=== PATIENT | male | born 1950 | race Caucasian/White ===

== ENCOUNTER 2018-02-11 04:21 | Emergency (ER) | payer MEDICARE, BC ==
[2018-02-11 04:59] VITALS: BP 122/89
[2018-02-11] MEDS ORDERED: HYDROmorphone 1 MG/ML Syringe IM ONE (05:32)
[2018-02-11] MEDS ORDERED: Ondansetron 4 MG Tab.DIS PO ONE (05:34)
[2018-02-11] MEDS ORDERED: Ketorolac 30 MG/ML SDV IM ONE (05:34)
--- NOTE | 2018-02-11 06:33 | EDM.PDOC ---
ED HPI GENERAL MEDICAL PROBLEM - General Chief Complaint: Neck Problem Stated Complaint: SORE NECK AND SHOULDER/ NO INJURY Time Seen by Provider: 02/11/18 05:27 Source of Information: Reports: Patient History Limitations: Reports: No Limitations - History of Present Illness INITIAL COMMENTS - FREE TEXT/NARRATIVE: This gentleman says that he was lifting a kayak to put it in the truck and then afterwards started having severe neck pain. It's gotten worse through the night. He describes it in the the left side of the neck posteriorly and radiating down to the left shoulder. He denies any weakness. Good been no trauma. neck Pain Score (Numeric/FACES): 8 - Related Data Allergies Allergy/AdvReac Type Severity Reaction Status Date / Time No Known Allergies Allergy Verified 02/11/18 04:50 Home Meds: Home Meds Acetaminophen/Caffeine [Excedrin Tension Headache] 2 tab PO DAILY 10/30/15 [ History] Irbesartan [Avapro] 150 mg PO DAILY 10/30/15 [History] Pantoprazole Sodium [Protonix] 40 mg PO DAILY 10/30/15 [History] Past Medical History HEENT History: Reports: Impaired Vision Cardiovascular History: Reports: Cardiomyopathy, Heart Failure, Hypertension, Other (See Below) Other Cardiovascular History: atrial flutter Respiratory History: Reports: SOB Gastrointestinal History: Reports: GERD Musculoskeletal History: Reports: Arthritis Neurological History: Reports: Headaches, Chronic Psychiatric History: Reports: Anxiety Endocrine/Metabolic History: Reports: Diabetes, Type II, Obesity/BMI 30+ - Infectious Disease History Infectious Disease History: Reports: Chicken Pox, Measles - Past Surgical History HEENT Surgical History: Reports: Oral Surgery Cardiovascular Surgical History: Reports: Cardiac Ablation, Other (See Below) Other Cardiovascular Surgeries/Procedures: cardiac regurgitation GI Surgical History: Reports: Colonoscopy Musculoskeletal Surgical History: Reports: Knee Replacement Social & Family History - Tobacco Use Smoking Status *Q: Never Smoker - Caffeine Use Caffeine Use: Reports: Coffee - Recreational Drug Use Recreational Drug Use: No - Living Situation & Occupation Living situation: Reports: , with Spouse Occupation: Retired ED ROS GENERAL - Review of Systems Review Of Systems: ROS reveals no pertinent complaints other than HPI. ED EXAM, UPPER BACK/NECK PAIN - Physical Exam Exam: See Below Exam Limited By: No Limitations General Appearance: Alert, WD/WN, Moderate Distress Neck Exam: Stiff Neck (Neck is stiff there some tenderness to the left left paraspinous muscles tenderness to the other associated muscles to the lateral side of the neck radiating down it the trapezius. Some tenderness in the supraspinatus area also.) Extremities: Normal Inspection Neurologic: No Motor/Sensory Deficits Course - Vital Signs Last Recorded V/S: Last Vital Signs Temp 36.4 C 02/11/18 04:59 Pulse 72 02/11/18 04:59 Resp 18 02/11/18 04:59 BP 122/89 02/11/18 04:59 Pulse Ox 95 02/11/18 04:59 - Orders/Labs/Meds Meds: Medications Discontinued Medications Generic Name Dose Route Start Last Admin Trade Name Rameshq PRN Reason Stop Dose Admin Hydromorphone HCl 2 mg 02/11/18 05:32 02/11/18 05:41 Dilaudid IM 02/11/18 05:33 2 mg ONETIME ONE Administration Ketorolac Tromethamine 30 mg 02/11/18 05:34 02/11/18 05:40 Toradol IM 02/11/18 05:35 30 mg ONETIME ONE Administration Ondansetron HCl 4 mg 02/11/18 05:34 02/11/18 05:40 Zofran Odt PO 02/11/18 05:35 4 mg ONETIME ONE Administration - Re-Assessments/Exams Free Text/Narrative Re-Assessment/Exam: 02/11/18 06:45 Patient received an injection of the Dilaudid 2 mg, Toradol 60 mg and Zofran 4 mg sublingual. Had good pain relief. Departure - Departure Time of Disposition: 06:30 Disposition: Home, Self-Care 01 Condition: Fair Clinical Impression: Neck muscle spasm - Discharge Information Instructions: Muscle Cramps and Spasms, [id number] Referrals: PCP,None [Primary Care Provider] - Forms: ED Department Discharge Additional Instructions: For pain use Percocet 5/325 one or 2 every 4 hours as needed for pain #20 dispensed. To relax muscles take Flexeril 10 mg 3 times daily. Both medications can cause sedation and impaired driving. Additionally you can take ibuprofen up to 800 mg 3 times per day. Heat may help. Generally muscle spasms like this are caused by some nerve compression in your neck and generally this will go away in a few days. Some people wind up seeing a chiropractor for relief.
== END 2018-02-11 06:45 | disposition home or self-care (01) ==
LOC: JP.ED 04:21
DX: M62.838 Other muscle spasm (principal); M54.2 Cervicalgia; I11.0 Hypertensive heart disease with heart failure; I50.9 Heart failure, unspecified; F41.9 Anxiety disorder, unspecified; M19.90 Unspecified osteoarthritis, unspecified site; E11.9 Type 2 diabetes mellitus without complications; Z79.899 Other long term (current) drug therapy
CPT/HCPCS: 96372; 99283; A9270; J1170; J1885

== ENCOUNTER 2019-11-05 06:19 | Day surgery (SDC) | payer MEDICARE, BC ==
[2019-11-05] MEDS ORDERED: Propofol 200 MG/20 ML SDV ONE (07:36)
[2019-11-05] MEDS ORDERED: fentaNYL 100 MCG/2 ML SDV ONE (07:36)
[2019-11-05] MEDS ORDERED: Midazolam 1 MG/ML 2 ML SDV ONE (07:36)
[2019-11-05] MEDS ORDERED: Sodium Chloride 0.9% 1,000 ML IV SCH (09:45)
[2019-11-05 10:15] VITALS: BP 108/65; PULSE 44
--- NOTE | 2019-11-05 14:50 | PROC ---
DATE OF PROCEDURE: 11/05/2019 SURGEON: Gold Louis MD PROCEDURE: Colonoscopy. PREPROCEDURE DIAGNOSIS: History of colon polyps. POSTPROCEDURE DIAGNOSES: 1. History of colon polyps. 2. Two small sigmoid colon polyps, removed using biopsy forceps. DESCRIPTION OF PROCEDURE: Risks and goals of procedure were reviewed with the patient, and he gave informed consent to proceed. He was brought back to the endoscopy room. Sedation and monitoring provided by the Anesthesia Service. A time-out was held prior to the procedure to confirm right site, right patient, and right procedure, as well as to identify any potential concerns for the procedure, of which there were none. He was placed in a left lateral decubitus position. After adequate sedation was achieved, digital rectal exam was performed, which was unremarkable. Following this, the flexible colonoscope was placed and advanced out through the colon to the cecum. The scope was then slowly withdrawn through the length of the colon to the rectum where it was retroflexed, straightened, and removed. Cecum was identified by the appendiceal orifice and ileocecal valve. He was noted to have a very small 0.1 cm polyp in the proximal sigmoid colon, removed using biopsy forceps. There was also a 0.2 cm polyp in the mid sigmoid colon, which was removed using the biopsy forceps. No other significant mucosal polyps, masses, or lesions were seen. The procedure was, otherwise, completed without complication. He will be monitored in PAR in outpatient area until fully recovered from IV sedation and discharged to home. Pathologic review of the biopsy specimen is pending at this time. Gold Louis MD /[id number]
== END 2019-11-05 09:54 | disposition home or self-care (01) ==
LOC: JP.SDS 06:19
PROVIDERS: ATTEND Hospitalist
DX: Z12.11 Encounter for screening for malignant neoplasm of colon (principal); D12.5 Benign neoplasm of sigmoid colon; I10 Essential (primary) hypertension; E78.5 Hyperlipidemia, unspecified; E11.9 Type 2 diabetes mellitus without complications; K21.9 Gastro-esophageal reflux disease without esophagitis; Z86.010 Personal history of colon polyps
CPT/HCPCS: 45380; J2250; J2704; J3010; J7030; 88305

== ENCOUNTER 2022-12-20 11:27 | Emergency (ER) | payer MEDICARE, BC ==
[2022-12-20] MEDS ORDERED: Ibuprofen 800 MG Tab PO ONE (11:58)
[2022-12-20 12:20] LABS: ESTIMATED GFR 58 mL/min (>60); TROPONIN I HIGH SENSITIVITY 49.1 pg/mL (<=60.3)
[2022-12-20 13:18] VITALS: BP 157/80; PULSE 60
== END 2022-12-20 14:37 | disposition home or self-care (01) ==
LOC: JP.ED 11:27
DX: R60.9 Edema, unspecified (principal); K21.9 Gastro-esophageal reflux disease without esophagitis; E11.9 Type 2 diabetes mellitus without complications; E66.9 Obesity, unspecified; I10 Essential (primary) hypertension
CPT/HCPCS: 36415; 80053; 83880; 84484; 85025; 85379; 85610; 85730; 86140; 93005; 93971; 99285; A9270

== ENCOUNTER 2024-09-14 04:26 | Emergency (ER) | payer MEDICARE, BC ==
[2024-09-14] MEDS: oxyCODONE 5 MG Tab PO ONE (05:28)
[2024-09-14 05:32] LABS: BASOPHILS ABSOLUTE AUTO 0.03 K/uL (0.00-0.10); BASOPHILS PERCENT AUTO 0.3 % (0.1-1.3); EOSINOPHILS ABSOLUTE AUTO 0.18 K/uL (0.00-0.40); EOSINOPHILS PERCENT AUTO 2.1 % (0.0-5.4); HEMATOCRIT 36.5 % (38.4-49.7); HEMOGLOBIN 12.5 g/dL (12.9-16.9); IMMATURE GRAN ABSOLUTE AUTO 0.05 K/uL (0.00-0.23); IMMATURE GRAN PERCENT AUTO 0.6 % (0.0-0.7); LYMPHOCYTES ABSOLUTE AUTO 0.85 K/uL (0.8-3.3); LYMPHOCYTES PERCENT AUTO 9.9 % (11.4-47.7); MEAN CORPUSCULAR HEMOGLOBIN 30.3 pg (31.6-35.5); MEAN CORPUSCULAR HGB CONC 34.2 g/dL (31.6-35.5); MEAN CORPUSCULAR VOLUME 88.4 fL (81.4-99.0); MONOCYTES PERCENT AUTO 12.8 % (3.3-12.6); NEUTROPHILS ABSOLUTE AUTO 6.37 K/uL (1.0-7.6); NEUTROPHILS PERCENT AUTO 74.3 % (40.0-78.1); PLATELET COUNT,PLT 244 K/uL (130-375); RED BLOOD CELL COUNT 4.13 M/uL (4.14-5.76); WHITE BLOOD CELL COUNT,WBC 8.6 K/uL (3.2-11.0)
[2024-09-14 05:55] LABS: CALCIUM 9.3 mg/dL (8.5-10.1); CREATININE 2.3 mg/dL (0.8-1.3); EST CRCL DRUG DOSING (CG) 29.54 mL/min; TROPONIN I HIGH SENSITIVITY 11.9 pg/mL (<=60.3)
[2024-09-14 06:11] VITALS: BP 90/60; PULSE 68
== END 2024-09-14 07:10 | disposition home or self-care (01) ==
LOC: JP.ED 04:26
DX: M17.12 Unilateral primary osteoarthritis, left knee (principal); I11.0 Hypertensive heart disease with heart failure; I50.9 Heart failure, unspecified; K21.9 Gastro-esophageal reflux disease without esophagitis; E11.9 Type 2 diabetes mellitus without complications; E66.9 Obesity, unspecified; Z79.01 Long term (current) use of anticoagulants; Z79.899 Other long term (current) drug therapy; Z68.32 Body mass index [BMI] 32.0-32.9, adult
CPT/HCPCS: 36415; 71045; 80048; 84484; 85025; 93005; 99284; A9270; 93010; 99283

== ENCOUNTER 2024-12-22 10:34 | Emergency (ER) | payer MEDICARE, BC ==
[2024-12-22 10:54] VITALS: BP 121/72; PULSE 101
[2024-12-22] MEDS ORDERED: Sodium Chloride 0.9% 10 ML Syringe FLUSH PRN (11:37)
[2024-12-22 11:51] LABS: BASOPHILS ABSOLUTE AUTO 0.03 K/uL (0.00-0.10); BASOPHILS PERCENT AUTO 0.3 % (0.1-1.3); EOSINOPHILS ABSOLUTE AUTO 0.05 K/uL (0.00-0.40); EOSINOPHILS PERCENT AUTO 0.6 % (0.0-5.4); HEMATOCRIT 33.9 % (38.4-49.7); HEMOGLOBIN 11.3 g/dL (12.9-16.9); IMMATURE GRAN ABSOLUTE AUTO 0.05 K/uL (0.00-0.23); IMMATURE GRAN PERCENT AUTO 0.6 % (0.0-0.7); LYMPHOCYTES ABSOLUTE AUTO 1.31 K/uL (0.8-3.3); LYMPHOCYTES PERCENT AUTO 14.9 % (11.4-47.7); MEAN CORPUSCULAR HEMOGLOBIN 29.2 pg (31.6-35.5); MEAN CORPUSCULAR HGB CONC 33.3 g/dL (31.6-35.5); MEAN CORPUSCULAR VOLUME 87.6 fL (81.4-99.0); MONOCYTES ABSOLUTE AUTO 1.27 K/uL (0.20-0.90); MONOCYTES PERCENT AUTO 14.4 % (3.3-12.6); NEUTROPHILS PERCENT AUTO 69.2 % (40.0-78.1); PLATELET COUNT,PLT 309 K/uL (130-375); RED BLOOD CELL COUNT 3.87 M/uL (4.14-5.76); WHITE BLOOD CELL COUNT,WBC 8.8 K/uL (3.2-11.0)
[2024-12-22 12:08] LABS: CALCIUM 9.6 mg/dL (8.5-10.1); CREATININE 1.9 mg/dL (0.8-1.3); EST CRCL DRUG DOSING (CG) 35.22 mL/min; POTASSIUM,K 3.8 mmol/L (3.6-5.2)
[2024-12-22] MEDS: Acetaminophen 1,000 MG in Premix Bag 1 BAG IV ONE (12:09)
[2024-12-22 12:11] LABS: ANION GAP 17.8 mmol/L (5.0-14.0)
[2024-12-22 12:15] LABS: LACTIC ACID 1.7 mmol/L (0.4-2.0)
== END 2024-12-22 13:24 | disposition home or self-care (01) ==
LOC: JP.ED 10:34
DX: G89.18 Other acute postprocedural pain (principal); I11.0 Hypertensive heart disease with heart failure; I50.9 Heart failure, unspecified; E11.9 Type 2 diabetes mellitus without complications; E66.9 Obesity, unspecified; M19.90 Unspecified osteoarthritis, unspecified site; K21.9 Gastro-esophageal reflux disease without esophagitis; Z96.652 Presence of left artificial knee joint; Z95.0 Presence of cardiac pacemaker; Z79.899 Other long term (current) drug therapy; Z79.01 Long term (current) use of anticoagulants; Z79.02 Long term (current) use of antithrombotics/antiplatelets; Z79.891 Long term (current) use of opiate analgesic; Z68.33 Body mass index [BMI] 33.0-33.9, adult
CPT/HCPCS: 36415; 73562; 80048; 83605; 85025; 86140; 87040; 96365; 99283; J0131

== ENCOUNTER 2025-08-19 08:14 | Day surgery (SDC) | payer MEDICARE, BC ==
[2025-08-19] MEDS ORDERED: fentaNYL 100 MCG/2 ML SDV ONE (09:04)
[2025-08-19] MEDS ORDERED: Propofol 200 MG/20 ML SDV ONE (09:04)
[2025-08-19] MEDS: Lactated Ringers 1,000 ML IV SCH (09:33)
[2025-08-19 10:50] VITALS: PULSE 60
[2025-08-19 11:04] VITALS: BP 111/72
== END 2025-08-19 11:13 | disposition home or self-care (01) ==
LOC: JP.SDS 08:14
PROVIDERS: ATTEND Surgery
DX: Z12.11 Encounter for screening for malignant neoplasm of colon (principal); D12.2 Benign neoplasm of ascending colon; K62.1 Rectal polyp; I11.0 Hypertensive heart disease with heart failure; I50.9 Heart failure, unspecified; F41.9 Anxiety disorder, unspecified; E11.9 Type 2 diabetes mellitus without complications; Z86.0100 Personal history of colon polyps, unspecified; Z79.01 Long term (current) use of anticoagulants; Z79.899 Other long term (current) drug therapy
CPT/HCPCS: 00811; 45380; 45385; J2704; J3010; J7120; 88305